=== PATIENT | male | born 1995 | race Caucasian/White ===

== ENCOUNTER 2016-10-15 15:09 | Emergency (ER) | payer OTHER ==
[2016-10-15 16:20] VITALS: BP 112/66; PULSE 64; RESP 18; TEMP 97.8
--- NOTE | 2016-10-15 17:03 | ED ---
General Adult HPI - General Chief complaint: ENT Stated complaint: facial numbness-sent by [employer] Time Seen by Provider: 10/15/16 16:32 Source: patient, RN notes reviewed Mode of arrival: ambulatory Limitations: no limitations - History of Present Illness Initial comments: This is a 20-year-old male who is brought in by parents for paresthesias of the face. Patient states he has had intermittent symptoms of facial paresthesias on and off since Thursday. Patient states on Thursday he noticed some intermittent blurriness of his vision, but patient has not been wearing his prescription eyeglasses. Patient denies any head injury, headache, nausea/vomiting and patient states this has never happened before. Patient states he started treatment of acyclovir on Thursday for a cold sore. Patient is not on any anticoagulants. Patient states he has a history of subdural hematoma but this was after hitting his head as a child. Patient denies any history of migraines. Patient admits to some congestion and sore throat and also complains of a lymph node to the left side neck that is tender. Patient denies any cough. Patient states he is up-to-date on all immunizations. Patient denies any recent fever, chills, shortness breath, chest pain, abdominal pain, nausea/vomiting/diarrhea, back pain, numbness, hematuria or any other complaints. - Related Data Previous Rx's Medication Instructions Recorded Ibuprofen [Motrin] 600 mg PO Q6HR PRN #20 tab 07/13/14 Allergies Allergy/AdvReac Type Severity Reaction Status Date / Time No Known Allergies Allergy Verified 07/13/14 09:03 Review of Systems ROS Statement: Those systems with pertinent positive or pertinent negative responses have been documented in the HPI. ROS Other: All systems not noted in ROS Statement are negative. Past Medical History Additional Past Medical History / Comment(s): subdural hematoma History of Any Multi-Drug Resistant Organisms: None Reported Past Surgical History: No Surgical Hx Reported Past Psychological History: No Psychological Hx Reported Smoking Status: Never smoker Past Alcohol Use History: None Reported Past Drug Use History: None Reported General Exam - General Exam Comments Initial Comments: General: The patient is awake and alert, in no distress, and does not appear acutely ill. Eye: Pupils are equal, round and reactive to light, extra-ocular movements are intact. No nystagmus. There is normal conjunctiva bilaterally. No signs of icterus. Visual acuity left eye is 20/40, right eye is 20/30 in both eyes is 20 /30. Patient is not wearing his normal corrective lenses. Ears: TMs pink and pearly with intact cone of light bilaterally. Normal external ear canals Nose: Nasal turbinates pink and moist Mouth and throat: Erythematous lesion to the lower lip consistent with a healing cold sore. Mild erythema of the posterior pharynx. There are moist mucous membranes and no oral lesions. Neck: There are submandibular lymph nodes present the left side that are tender. No meningismus. The neck is supple, there is no JVD. Cardiovascular: There is a regular rate and rhythm. No murmur, rub or gallop is appreciated. Respiratory: Lungs are clear to auscultation, respirations are non-labored, breath sounds are equal. No wheezes, stridor, rales, or rhonchi. Gastrointestinal: Soft, non-distended, non-tender abdomen without masses or organomegaly noted. There is no rebound or guarding present. No CVA tenderness. Bowel sounds are unremarkable. Musculoskeletal: Normal ROM, no tenderness. Strength 5/5. Sensation intact. Radial pulses equal bilaterally 2+. Neurological: Patient has no loss of sensation to the face via light touch but patient has mild hyperesthesia to the left side face. A&O x 3. CN II-XII intact , There are no obvious motor or sensory deficits. Coordination appears grossly intact. Speech is normal. Skin: Skin is warm and dry and no rashes or lesions are noted. Psychiatric: Cooperative, appropriate mood & affect, normal judgment. Limitations: no limitations Course Vital Signs 10/15/16 16:18 Temperature 97.8 F Pulse Rate 64 Respiratory 18 Rate Blood Pressure 112/66 O2 Sat by Pulse 100 Oximetry Medical Decision Making - Medical Decision Making This is a 20-year-old male who presents with paresthesias of the face. On physical exam patient is grossly neurologically intact. Patient has no loss of sensation to the face via light touch but has mild hyperesthesia to the left side face. There is mild erythema of the posterior pharynx and submandibular lymph nodes present. Strep and influenza were checked and came back negative. I discussed the risks and benefits of CT at this time due to patient's paresthesias and visual changes. At this time patient and mother would like a CT. CT of the brain was done and reviewed showing: Negative unenhanced head computed tomography scan. No change. Report read by Dr. Ashraf. Discussed the results with patient and his mother. I discussed that patient is most likely undergoing an upper respiratory infection which would explain his symptoms and his enlarged lymph node. Patient is already on antivirals for a cold sore. With further questioning patient admits that the paresthesias are more to the left side of his face. I discussed the early symptoms of Villegas's palsy and return parameters. Patient is exhibiting no facial weakness at this time. I discussed [id number] decongestants. I discussed return parameters.Discussed that patient should follow up with PCP in one to 2 days or return to the [facility] for any worsening symptoms or for any further concerns. Patient and parent were receptive to this plan and patient will be discharged home. I discussed this case with attending physician Dr. Miller who agrees the plan as stated above. - Lab Data Lab Results 10/15/16 10/15/16 Range/Units 17:00 17:00 Influenza Type A RNA Not Detected (Not Detectd) Influenza Type B (PCR) Not Detected (Not Detectd) Group A Strep Rapid Negative (Negative) Disposition Clinical Impression: Upper respiratory infection, Facial paresthesia, Cold sore Disposition: HOME SELF-CARE Condition: Good Instructions: Villegas Palsy (ED), Upper Respiratory Infection (ED) Additional Instructions: Please continue your antivirals for ear cold sore. Please use Tylenol and Motrin for any pain or fever symptoms. Please use [id number] decongestants or cough drops for further symptomatic treatment. Please use medication as discussed. Please follow-up with family doctor in the next 2 days of symptoms have not improved. Please return to emergency room if the symptoms increase or worsen or for any other concerns. Referrals: Gi Medellin DO [Primary Care Provider] - 1-2 days Time of Disposition: 17:50
--- NOTE | 2016-10-15 17:37 | CT ---
EXAMINATION TYPE: CT brain wo con DATE OF EXAM: 10/15/2016 5:24 PM COMPARISON: 04/07/2014 HISTORY: facial numbness and blurred vision CT DLP: 1121 mGycm Automated exposure control for dose reduction was used. FINDINGS: The ventricles and sulci appear normal. There is no mass effect nor midline shift. There is no sign o f intracranial hemorrhage. The calvarium is intact. IMPRESSION: Negative unenhanced head CT scan. No change.
== END 2016-10-15 17:56 | disposition home or self-care (01) ==
LOC: EC 15:09
DX: J06.9 Acute upper respiratory infection, unspecified (principal); R20.2 Paresthesia of skin; B00.1 Herpesviral vesicular dermatitis; Z87.820 Personal history of traumatic brain injury
CPT/HCPCS: 70450; 87081; 87430; 87502; 99284